=== PATIENT | male | born 1985 | race Caucasian/White ===

== ENCOUNTER 2016-09-25 08:16 | Emergency (ER) | payer MEDICAID ==
[~2016-09-25] VITALS: Ht 190.5 cm; Wt 105.3 kg
[2016-09-25 08:26] VITALS: BP 135/76
[2016-09-25] MEDS ORDERED: IBUPROFEN 200 MG TABLET ONE (08:49)
[2016-09-25] MEDS ORDERED: DEXAMETHASONE 4 MG TABLET ONE (08:49)
[2016-09-25] MEDS ORDERED: DEXAMETHASONE 4 MG TABLET PO ONE (09:00)
[2016-09-25] MEDS ORDERED: IBUPROFEN 200 MG TABLET PO ONE (09:00)
== END 2016-09-25 09:02 | disposition home or self-care (01) ==
LOC: ED 08:55
DX: J02.0 Streptococcal pharyngitis (principal)
CPT/HCPCS: 99283